=== PATIENT | male | born 1985 | race Caucasian/White ===

== ENCOUNTER 2024-05-24 19:10 | Emergency (ER) | payer SELFPAY ==
[2024-05-24] MEDS: Sodium Chloride 0.9% 10 ML Syringe FLUSH PRN (20:36)
[2024-05-24] MEDS: Sodium Chloride 0.9% 1,000 ML IV ONE (20:36)
[2024-05-24 20:44] LABS: BASOPHILS PERCENT AUTO 0.5 % (0.0-1.0); EOSINOPHILS ABSOLUTE AUTO 0.1 K/mm3 (0.0-0.4); EOSINOPHILS PERCENT AUTO 0.7 % (0.0-6.0); HEMATOCRIT 43.3 % (42.0-52.0); HEMOGLOBIN 15.1 gm/dl (14.0-18.0); IMMATURE GRAN ABSOLUTE AUTO 0.01 K/mm3 (0.00-0.05); IMMATURE GRAN PERCENT AUTO 0.1 % (0.0-0.4); LYMPHOCYTES ABSOLUTE AUTO 2.2 K/mm3 (1.0-4.8); LYMPHOCYTES PERCENT AUTO 26.2 % (24.0-44.0); MEAN CORPUSCULAR HEMOGLOBIN 32.8 pg (28.0-32.0); MEAN CORPUSCULAR HGB CONC 34.9 g/dl (32.0-36.0); MEAN CORPUSCULAR VOLUME 93.9 fl (83.0-99.0); MEAN PLATELET VOLUME 9.4 fl (9.4-12.4); MONOCYTES ABSOLUTE AUTO 0.6 K/mm3 (0.0-0.8); NEUTROPHILS ABSOLUTE AUTO 5.5 K/mm3 (1.8-7.7); NEUTROPHILS PERCENT AUTO 65.5 % (41.0-71.0); PLATELET COUNT,PLT 277 K/mm3 (150-400); RED BLOOD CELL COUNT 4.61 M/mm3 (4.52-5.90); WHITE BLOOD CELL COUNT,WBC 8.44 K/mm3 (3.9-11.3)
[2024-05-24 20:45] LABS: APPEARANCE,URINE CLEAR (Clear); BILIRUBIN,URINE NEGATIVE (Negative); COLOR,URINE YELLOW (Yellow); GLUCOSE,URINE NEGATIVE (Negative); KETONES,URINE NEGATIVE (Negative); LEUKOCYTE ESTERASE,URINE NEGATIVE (Negative); NITRITE,URINE NEGATIVE (Negative); OCCULT BLOOD,URINE NEGATIVE (Negative); PROTEIN,URINE NEGATIVE (Negative); UROBILINOGEN,URINE 0.2 (0.2-1.0)
[2024-05-24 21:06] LABS: A/G RATIO 1.1 (1-2); ALBUMIN 3.7 g/dl (3.4-5.0); ANION GAP 11.8 (5-15); BILIRUBIN TOTAL 0.4 mg/dL (0.2-1.0); BUN/CREATININE RATIO 14.4 (14-18); CALCIUM 9.2 mg/dL (8.5-10.1); CREATININE 0.9 mg/dL (0.7-1.3); EST CRCL DRUG DOSING (CG) 116.2 mL/min; MAGNESIUM 1.8 mg/dL (1.8-2.4); POTASSIUM,K 3.8 mEq/L (3.5-5.1); PROTEIN TOTAL,TP 7.2 g/dl (6.4-8.2)
[2024-05-24] MEDS: Naproxen 500 MG Tab PO ONE (23:00)
[2024-05-26 22:41] LABS: LEAD <2.0 ug/dL (<=4.9)
== END 2024-05-24 23:10 | disposition home or self-care (01) ==
LOC: JD.ED 19:10 → EDBD 19:10 → JD.ED 23:10
DX: R51.9 Headache, unspecified (principal); M79.10 Myalgia, unspecified site
CPT/HCPCS: 36415; 80053; 81003; 83655; 83735; 85025; 99284; A9270; J3490; J7030

== ENCOUNTER 2024-05-29 13:22 | Emergency (ER) | payer SELFPAY | END 2024-05-29 14:05 | disposition left against medical advice (07) | LOC: JD.ED 13:22 | DX: Z53.21 Procedure and treatment not carried out due to patient leaving prior to being seen by health care provider (principal) ==

== ENCOUNTER 2025-02-03 13:02 | Emergency (ER) | payer SELFPAY ==
[2025-02-03] MEDS: Amoxicillin/Clavulanate K 875-125 MG Tab PO ONE (13:51)
[2025-02-03] MEDS: Naproxen 500 MG Tab PO ONE (13:51)
[2025-02-03] MEDS: Clindamycin HCl 150 MG Cap PO ONE (14:22)
== END 2025-02-03 14:15 | disposition home or self-care (01) ==
LOC: JD.ED 13:02
DX: S02.5XXB Fracture of tooth (traumatic), initial encounter for open fracture (principal); F17.210 Nicotine dependence, cigarettes, uncomplicated; X58.XXXA Exposure to other specified factors, initial encounter; Y93.89 Activity, other specified
CPT/HCPCS: 99282; A9270; 99283